=== PATIENT | male | born 1985 | race Caucasian/White ===

== ENCOUNTER 2018-10-20 16:51 | Emergency (ER) | payer MEDICAID ==
[2018-10-20 16:58] VITALS: BP 134/83
--- NOTE | 2018-10-20 17:02 | EDPHY ---
H & P Stated Complaint: st Time Seen by Provider: 10/20/18 16:59 - Personal History Current Tetanus/Diphtheria Vaccine: Yes Current Tetanus Diphtheria and Acellular Pertussis (TDAP): Yes - Medical/Surgical History Hx Asthma: No Hx Chronic Respiratory Disease: No Hx Diabetes: No Hx Cardiac Disease: No Hx Renal Disease: No Hx Cirrhosis: No Hx Alcoholism: No Hx HIV/AIDS: No Hx Splenectomy or Spleen Trauma: No Other PMH: TBI, - Social History Smoking Status: Heavy smoker Constitutional: Initial Vital Signs Temperature (C) 37.8 C 10/20/18 16:56 Heart Rate 139 H 10/20/18 16:56 Respiratory Rate 24 H 10/20/18 16:56 Blood Pressure 134/83 H 10/20/18 16:56 O2 Sat (%) 97 10/20/18 16:56 O2 Delivery Mode Room Air Allergies/Adverse Reactions: No Known Allergies Allergy (Unverified 10/20/18 16:56) Home Medications: Medication Instructions Recorded Cephalexin [Keflex (RX)] 500 mg PO TID #30 cap 10/20/18 Excedrin Extra Strength Caplet 10/20/18 Medical Decision Making ED Course/Re-evaluation: CHIEF COMPLAINT: Sore throat HISTORY OF PRESENT ILLNESS: The patient is a 33 y/o male complaining of a worsening sore throat for three days. Due to the pain he is having mild difficulty swallowing. As his symptoms have not improved he decided to present to the emergency department. No chest pain, shortness of breath, abdominal pain, urinary or bowel complaints, nausea, vomiting, numbness, paresthesias, fevers. REVIEW OF SYSTEMS: A 10 point review of systems was performed and is negative with the exception of the elements mentioned in the history of present illness. PHYSICAL EXAM: HR, BP, O2 Sat, RR. Temp noted General Appearance: Alert, well hydrated, appropriate, and non-toxic appearing. Head: Atraumatic without scalp tenderness or obvious injury Eyes: Pupils equal, round, reactive to light and accommodation, EOMI, no trauma , no injection. Ears: Clear bilaterally, no perforation, normal landmarks Nose: Atraumatic, no rhinorrhea, clear. Throat: Left tonsillar exudate with a kolb and necrotic appearance. His throat is also swollen and erythematic. There is no tonsillar abscess. No lesions and mucus membranes moist. Neck: Supple, 2+ carotid upstroke, nontender, no lymphadenopathy. Respiratory: No retractions, no distress, no wheezes, and no accessory muscle use. Lungs are clear to auscultation bilaterally. Cardiovascular: Regular rate and rhythm, no murmurs, rubs, or gallops. Bilateral carotid, radial, dorsalis pedis, and posterior tibial pulses intact. Good capillary refill all extremities. Gastrointestinal: Abdomen is soft, nontender, non-distended, no masses, no rebound, no guarding, no peritoneal signs. Musculoskeletal: Normal active ROM of all extremities, atraumatic. Neurological: Alert, appropriate, and interactive. The patient has normal DTRs and non-focal cranial nerves, motor, sensory, and cerebellar exam. Skin: No rashes, good turgor, no nodules on palpation. Past medical history: TBI Past surgical history: Denies Family history: Denies Social history: Lives in [place], single, employed DIAGNOSTICS/PROCEDURES/CRITICAL CARE TIME: Not indicated. DIFFERENTIAL DIAGNOSIS: The differential diagnosis for the patient's fever included but was not limited to tonsillitis, pharyngitis, pneumonia, urinary tract infection, viral syndrome , meningitis, and sepsis. MEDICAL DECISION MAKING: The patient is a 33 y/o male presenting with a worsening sore throat for three days. On exam he has left tonsillar exudate with a kolb and necrotic appearance. His throat is also swollen and erythematic. There is no tonsillar abscess. I presume this patient has tonsillitis or a bacterial pharyngitis. 40mg PO Prednisone and 500mg PO Keflex administered. I have also prescribed him a course of Keflex and a take home pack of Vicodin. Return precautions provided ; patient is comfortable with this plan. - Data Points Medications Given: Discontinued Medications Hydrocodone Bitart/Acetaminophen ([place] 5/325mg Prepack#6) 1 btl TAKEHOME EDNOW ONE Stop: 10/20/18 17:04 Last Admin: 10/20/18 17:15 Dose: 1 btl Cephalexin (Keflex 500 Mg Prepack#4) 1 btl TAKEHOME EDNOW ONE PRN Reason: Protocol Stop: 10/20/18 17:04 Last Admin: 10/20/18 17:14 Dose: 1 btl Cephalexin HCl (Keflex) 500 mg PO EDNOW ONE PRN Reason: Protocol Stop: 10/20/18 17:04 Last Admin: 10/20/18 17:14 Dose: 500 mg Prednisone (Prednisone) 40 mg PO EDNOW ONE Stop: 10/20/18 17:04 Last Admin: 10/20/18 17:14 Dose: 40 mg Departure - Departure Disposition: Home, Routine, Self-Care Clinical Impression: Tonsillitis Acute pharyngitis Qualifiers: Pharyngitis/tonsillitis etiology: other specified organisms Qualified Code(s): J02.8 - Acute pharyngitis due to other specified organisms Condition: Good Instructions: Cephalexin (By mouth), Hydrocodone/Acetaminophen (By mouth), Pharyngitis (ED), Tonsillitis (ED) Additional Instructions: 1. Take Keflex as prescribed. 2. Take Vicodin as prescribed. 3. Follow-up with your primary doctor within 72 hours. 4. Return to the Emergency Department for fever, chest pain, shortness of breath , increasing pain or other worsening of condition. Referrals: [facility],. [Clinic] - As per Instructions Prescriptions: Cephalexin [Keflex (RX)] 500 mg PO TID #30 cap Report Scribed for: Jose F Mccann Report Scribed by: Linda Loja Date of Report: 10/20/18 Time of Report: 17:01
[2018-10-20] MEDS ORDERED: CEPHALEXIN 500 MG CAP PO ONE (17:03)
[2018-10-20] MEDS ORDERED: CEPHALEXIN 500MG PREPACK#4 BTL TAKEHOME ONE (17:03)
[2018-10-20] MEDS ORDERED: predniSONE 20 MG TAB PO ONE (17:03)
[2018-10-20] MEDS ORDERED: HYDROCOD/APAP 5/325 PREPACK#6 BTL TAKEHOME ONE (17:03)
== END 2018-10-20 17:17 | disposition home or self-care (01) ==
DX: J03.90 Acute tonsillitis, unspecified (principal)
CPT/HCPCS: J7512